=== PATIENT | female | born 1945 | race Two or more races ===

== ENCOUNTER 2018-07-22 18:39 | Inpatient (IN) | payer MEDICARE, OTHER ==
[~2018-07-22] VITALS: Ht 162.6 cm; Wt 73.5 kg
[2018-07-22] MEDS ORDERED: TETRACAINE 0.5% OPHTH DROPS 4ML RIGHTEYE ONE (19:30)
[2018-07-22] MEDS ORDERED: ACYCLOVIR INJ 750 MG in DEXT 5% WATER 125 ML IV SCH (19:30)
[2018-07-22] MEDS ORDERED: FLUORESCEIN SODIUM 1MG/STRIP RIGHTEYE ONE (19:30)
[2018-07-22 21:50] LABS: CHLORIDE 96 mEq/L (98-107)
[2018-07-22] MEDS ORDERED: DOCUSATE SODIUM 100MG CAPSULE PO PRN (23:00)
[2018-07-22] MEDS ORDERED: MAGNESIUM/ALUMINUM HYDROXIDE/SIMETHICONE 30ML UDC PO PRN (23:00)
[2018-07-22] MEDS ORDERED: ACYCLOVIR INJ 500 MG in DEXT 5% WATER 100 ML IV SCH (23:00)
[2018-07-22] MEDS ORDERED: DIPHENHYDRAMINE 50MG/ML VIAL IV PRN (23:00)
[2018-07-22] MEDS ORDERED: ONDANSETRON HCL 4MG/2ML INJ IV PRN (23:00)
[2018-07-22] MEDS ORDERED: HYDROCODONE/ACETAMINOPHEN 5/325MG TABLET PO PRN (23:00)
[2018-07-22] MEDS ORDERED: GUAIFENESIN 200MG/10ML SUGAR FREE UDC PO PRN (23:00)
[2018-07-22] MEDS ORDERED: HYDROMORPHONE HCL/PF 2MG/ML CPJ IV PRN (23:00)
[2018-07-22] MEDS ORDERED: IPRATROPIUM/ALBUTEROL 0.5-3(2.5)MG/3ML NEB INH PRN (23:00)
[2018-07-22] MEDS ORDERED: HYDRALAZINE 20MG/ML VIAL IV PRN (23:00)
[2018-07-22] MEDS ORDERED: LORAZEPAM 2MG/ML CPJ IV PRN (23:00)
[2018-07-22] MEDS ORDERED: CLONIDINE 0.1MG TABLET PO PRN (23:00)
[2018-07-22] MEDS: ACETAMINOPHEN 325MG TABLET PO PRN (23:42)
[2018-07-23 04:00] VITALS: BP_SYST 146
[2018-07-23 04:54] VITALS: BP 118/62
[2018-07-23] MEDS ORDERED: ACYCLOVIR IV SCH (06:00)
[2018-07-23] MEDS ORDERED: DEXT 5% IV SCH (06:00)
[2018-07-23] MEDS ORDERED: WATER IV SCH (06:00)
[2018-07-23] MEDS: SODIUM CHLORIDE 0.9% INJ 3ML FLUSH IVF SCH ×3 (06:09→21:01)
[2018-07-23 08:00] VITALS: BP 126/49
[2018-07-23] MEDS: ENOXAPARIN 40MG/0.4ML SYR SUBCUT SCH (08:40)
[2018-07-23] MEDS: ASPIRIN 81MG EC TABLET PO SCH (08:40)
[2018-07-23 10:33] LABS: INR 1.2; PROTHROMBIN TIME 11.7 sec (9.1-11.1)
[2018-07-23 10:41] LABS: HEMOGLOBIN. 10.6 g/dL (12.0-16.0); MEAN CORPUSCULAR HEMOGLOBIN 30.2 pg (28.0-32.0); MEAN CORPUSCULAR VOLUME 91.1 fL (81.0-99.0); MEAN PLATELET VOLUME 9.3 fl (7.4-10.4); PLATELET 161 x1000/uL (130-400); RED BLOOD CELL COUNT 3.51 mill/uL (4.2-5.4); RED CELL DISTRIBUTION WIDTH 14.5 % (11.6-14.6)
[2018-07-23 10:44] LABS: CHLORIDE 106 mEq/L (98-107)
[2018-07-23] MEDS: ACETAMINOPHEN 325MG TABLET PO PRN ×2 (11:53→22:20)
[2018-07-23 12:00] VITALS: BP 126/49
[2018-07-23 14:09] LABS: ATYPICAL LYMPHOCYTES 1
[2018-07-23 14:10] LABS: PLATELET ESTIMATE NORMAL
[2018-07-23 16:00] VITALS: BP 132/60
[2018-07-23] MEDS: ACYCLOVIR INJ 500 MG in DEXT 5% WATER 100 ML IV SCH (17:47)
[2018-07-23] MEDS: NEO/POLYMYX B SULF/DEXAMETH OPHTH OINT 3.5GM RIGHTEYE SCH (17:48)
[2018-07-23] MEDS: CIPROFLOXACIN 0.3% OPHTH SOLN 2.5ML BOTHEYE SCH ×2 (17:48→21:52)
[2018-07-23 20:00] VITALS: BP 133/64
[2018-07-23] MEDS ORDERED: POTASSIUM CHLORIDE 20MEQ TABLET SR PO NR (20:00)
[2018-07-24] MEDS: NEO/POLYMYX B SULF/DEXAMETH OPHTH OINT 3.5GM RIGHTEYE SCH ×4 (00:13→17:34)
[2018-07-24 04:00] VITALS: BP 136/67
[2018-07-24] MEDS: ACYCLOVIR INJ 500 MG in DEXT 5% WATER 100 ML IV SCH ×2 (05:30→17:34)
[2018-07-24] MEDS: SODIUM CHLORIDE 0.9% INJ 3ML FLUSH IVF SCH ×3 (05:30→21:59)
[2018-07-24 08:00] VITALS: BP 115/58
[2018-07-24] MEDS: ENOXAPARIN 40MG/0.4ML SYR SUBCUT SCH (10:49)
[2018-07-24] MEDS: ASPIRIN 81MG EC TABLET PO SCH (10:49)
[2018-07-24] MEDS: CIPROFLOXACIN 0.3% OPHTH SOLN 2.5ML BOTHEYE SCH ×4 (10:50→21:40)
[2018-07-24 12:00] VITALS: BP 127/73
[2018-07-24 22:00] VITALS: BP 134/72
[2018-07-25 00:13] VITALS: BP 143/81
[2018-07-25] MEDS: NEO/POLYMYX B SULF/DEXAMETH OPHTH OINT 3.5GM RIGHTEYE SCH ×4 (00:45→18:23)
[2018-07-25] MEDS: SODIUM CHLORIDE 0.9% INJ 3ML FLUSH IVF SCH ×3 (06:44→22:13)
[2018-07-25] MEDS: ACYCLOVIR INJ 500 MG in DEXT 5% WATER 100 ML IV SCH ×2 (06:46→18:23)
[2018-07-25 08:00] VITALS: BP 107/54
[2018-07-25] MEDS: ASPIRIN 81MG EC TABLET PO SCH (09:34)
[2018-07-25] MEDS: CIPROFLOXACIN 0.3% OPHTH SOLN 2.5ML BOTHEYE SCH ×4 (09:35→22:13)
[2018-07-25] MEDS: ENOXAPARIN 40MG/0.4ML SYR SUBCUT SCH (09:35)
[2018-07-25 12:00] VITALS: BP 126/64
[2018-07-25 15:23] LABS: CHLORIDE 102 mEq/L (98-107)
[2018-07-25 16:00] VITALS: BP 129/71
[2018-07-25 20:00] VITALS: BP 135/75
[2018-07-25] MEDS: ACETAMINOPHEN 325MG TABLET PO PRN (20:40)
[2018-07-26] VITALS: BP 128/76
[2018-07-26] MEDS: NEO/POLYMYX B SULF/DEXAMETH OPHTH OINT 3.5GM RIGHTEYE SCH ×3 (00:03→12:54)
[2018-07-26 04:00] VITALS: BP 112/67
[2018-07-26] MEDS: SODIUM CHLORIDE 0.9% INJ 3ML FLUSH IVF SCH ×2 (05:58→13:01)
[2018-07-26] MEDS: ACYCLOVIR INJ 500 MG in DEXT 5% WATER 100 ML IV SCH (05:58)
[2018-07-26] MEDS: ASPIRIN 81MG EC TABLET PO SCH (09:10)
[2018-07-26] MEDS: ENOXAPARIN 40MG/0.4ML SYR SUBCUT SCH (09:10)
[2018-07-26] MEDS: CIPROFLOXACIN 0.3% OPHTH SOLN 2.5ML BOTHEYE SCH ×2 (09:11→12:54)
[2018-07-26 11:51] VITALS: BP 127/73
[2018-07-26 12:27] VITALS: BP 127/73
== END 2018-07-26 15:05 | disposition home or self-care (01) | DRG 596 ==
LOC: ER 18:39 → 6EST 22:01 → ENRESERV 07-23 03:18
PROVIDERS: ADMIT Internal Medicine; ATTEND Internal Medicine
DX: B02.9 Zoster without complications (principal); H25.10 Age-related nuclear cataract, unspecified eye; I10 Essential (primary) hypertension; Z88.0 Allergy status to penicillin; Z88.1 Allergy status to other antibiotic agents
CPT/HCPCS: 36415; 71045; 93005; 96374; 99285; C1893; J0133; J1650; J7040; J7060